=== PATIENT | female | born 1960 | race Caucasian/White ===

== ENCOUNTER 2021-01-07 06:53 | Emergency (ER) | payer BC ==
[2021-01-07] MEDS ORDERED: Diphtheria,Pertussis(Acell),Tetanus Vaccine 0.5 ML Syringe IM ONE (07:01)
--- NOTE | 2021-01-07 07:08 | EDM.PDOC ---
ED HPI GENERAL MEDICAL PROBLEM - General Chief Complaint: Laceration Stated Complaint: FINGER LAC Time Seen by Provider: 01/07/21 06:58 Source of Information: Reports: Patient History Limitations: Reports: No Limitations - History of Present Illness INITIAL COMMENTS - FREE TEXT/NARRATIVE: The patient presents with a left index finger injury. She was helping her pull out some fence posts with a tractor and chain. She hooked the chain on the post and he pulled with the tractor before her finger was out and it crushed her finger. She has a laceration to the finger. She is left handed. Her tetanus is not up to date. Onset: Sudden Duration: Minutes: Location: Reports: Upper Extremity, Left (index finger) Quality: Reports: Sharp Severity: Moderate Improves with: Reports: Immobilization Worsens with: Reports: Movement Context: Reports: Trauma (crushed her left index finger) Associated Symptoms: Reports: No Other Symptoms Left Finger-Index Pain Score (Numeric/FACES): 10 - Related Data Allergies Allergy/AdvReac Type Severity Reaction Status Date / Time No Known Allergies Allergy Verified 01/07/21 07:05 Home Meds: Home Meds cephALEXin [Keflex] 500 mg PO Q6H #40 cap 01/07/21 [Rx] ED ROS GENERAL - Review of Systems Review Of Systems: See Below Constitutional: Reports: No Symptoms HEENT: Reports: No Symptoms Respiratory: Reports: No Symptoms Cardiovascular: Reports: No Symptoms Endocrine: Reports: No Symptoms GI/Abdominal: Reports: No Symptoms : Reports: No Symptoms Musculoskeletal: Reports: Other (Left index finger injury) ED EXAM, SKIN/RASH Exam: See Below Exam Limited By: No Limitations General Appearance: Alert, No Apparent Distress Ears: Normal External Exam Nose: Normal Inspection Head: Atraumatic, Normocephalic Neck: Normal Inspection Respiratory/Chest: No Respiratory Distress Extremities: Other (Left index finger has a 1.5cm laceration to the base of the nail and it wraps around it. She has sensation to the tip of her finger but it is reduced.) ED SKIN PROCEDURES - Laceration/Wound Repair Left Digit - 2nd (Index) Appearance: Subcutaneous, Irregular, Clean Distal NVT: Neuro & Vascular Intact, No Tendon Injury Anesthetic Type: Digital Local Anesthesia - Lidocaine (Xylocaine): 1% Plain Skin Prep: Saline Exploration/Debridement/Repair: Wound Explored, In a Bloodless Field, Explored t o Base Closed with: Sutures Lac/Wound length In cm: 1.5 Suture Size: 4-0 # of Sutures: 5 Suture Type: Nylon, Interrupted, Simple Tetanus Status Addressed: Yes Complications: No - Splinting Left 2nd Digit Splint Site: Left index finger Pre-Procedure NV Status: Normal Post-Procedure NV Status: Normal Splint Material: Aluminum-Foam Splint Design: Posterior Applied & Form Fitted By: Provider Provider Post-Splint Application NV Check: NV Status Normal, Good Position Complications: No Course - Vital Signs Last Recorded V/S: Last Vital Signs Temp 97.2 F 01/07/21 07:01 Pulse 65 01/07/21 07:01 Resp 18 01/07/21 07:01 BP 139/83 01/07/21 07:01 Pulse Ox 99 01/07/21 07:01 - Orders/Labs/Meds Orders: Active Orders 24 hr Category Date Time Status Vaccines to be Administered [RC] PER UNIT ROUTINE Care 01/07/21 07:01 Active Meds: Medications Discontinued Medications Generic Name Dose Route Start Last Admin Trade Name Jamshid PRN Reason Stop Dose Admin Diphtheria/Tetanus/Acell Pertussis 0.5 ml 01/07/21 07:01 Diphtheria,Pertussis(Acell),Tetanus Vaccine 0.5 Ml Syringe IM 01/07/21 07:02 .ONCE ONE Lidocaine HCl 10 ml 01/07/21 07:41 01/07/21 07:48 Lidocaine 1% 10 Ml Mdv INJECT 01/07/21 07:42 10 ml ONETIME ONE Administration Lidocaine HCl Confirm 01/07/21 07:42 01/07/21 07:48 Lidocaine 1% 10 Ml Mdv Administered 01/07/21 07:43 Not Given Dose 10 ml .ROUTE .STK-MED ONE - Re-Assessments/Exams Free Text/Narrative Re-Assessment/Exam: 01/07/21 07:07 I ordered an x-ray of her finger and a tetanus shot. 01/07/21 08:18 I was able to suture the finger and I had my nurse put an aluminum preformed splint on the finger. Departure - Departure Time of Disposition: 08:20 Disposition: Home, Self-Care 01 Condition: Good Clinical Impression: Crushing injury of left index finger Qualifiers: Encounter type: initial encounter Qualified Code(s): S67.191A - Crushing injury of left index finger, initial encounter Laceration of left index finger Qualifiers: Encounter type: initial encounter Damage to nail status: without damage Foreign body presence: without foreign body Qualified Code(s): S61.211A - Laceration without foreign body of left index finger without damage to nail, initial encounter Phalanx, distal fracture of finger Qualifiers: Encounter type: initial encounter Finger: index finger Fracture type: open Fracture alignment: nondisplaced Laterality: left Qualified Code(s): S62.661B - Nondisplaced fracture of distal phalanx of left index finger, initial encounter for open fracture - Discharge Information *PRESCRIPTION DRUG MONITORING PROGRAM REVIEWED*: Not Applicable *COPY OF PRESCRIPTION DRUG MONITORING REPORT IN PATIENT BARRIE: Not Applicable Prescriptions: cephALEXin [Keflex] 500 mg PO Q6H #40 cap Referrals: PCP,None [Primary Care Provider] - Guanakito Newman MD [Physician] - 1 Week Forms: ED Department Discharge Additional Instructions: Soak your finger in warm soapy water 2 times per day and apply antibiotic ointment after. Have the sutures removed within a week. Look for any signs of infection such as redness, swelling pain or discharge. If you see any of these signs, please return of see Dr Newman. Follow up with Dr Newman within a week. Sepsis Event Note (ED) - Focused Exam Vital Signs: Vital Signs Temp Pulse Resp BP Pulse Ox 01/07/21 07:01 97.2 F 65 18 139/83 99 - My Orders Last 24 Hours: My Active Orders 01/07/21 07:01 Vaccines to be Administered [RC] PER UNIT ROUTINE - Assessment/Plan Last 24 Hours: My Active Orders 01/07/21 07:01 Vaccines to be Administered [RC] PER UNIT ROUTINE
[2021-01-07] MEDS ORDERED: Lidocaine 1% 10 ML MDV INJECT ONE (07:41)
[2021-01-07] MEDS ORDERED: Lidocaine 1% 10 ML MDV ONE (07:42)
--- NOTE | 2021-01-07 07:44 | CR ---
Left second finger: 3 views centered to the left second finger were obtained. Comparison: No previous finger or hand study is available. Fracture is identified within the tuft of the distal phalanx with mild displacement. Soft tissue swelling is noted distally. No proximal osseous abnormality is appreciated. Impression: 1. Slightly displaced tuft fracture within the distal left second finger with associated soft tissue swelling. Diagnostic code #3
== END 2021-01-07 08:50 | disposition home or self-care (01) ==
LOC: JD.ED 06:53
DX: S67.191A Crushing injury of left index finger, initial encounter (principal); S62.661B Nondisplaced fracture of distal phalanx of left index finger, initial encounter for open fracture; Z23 Encounter for immunization; W23.0XXA Caught, crushed, jammed, or pinched between moving objects, initial encounter
CPT/HCPCS: 12001; 73140-26-F1; 73140-F1; 90471; 90715; 99283; 99283-25